=== PATIENT | male | born 1945 | race Caucasian/White ===

== ENCOUNTER 2023-08-06 17:49 | Emergency (ER) | payer MEDICARE, SELFPAY ==
[2023-08-06] VITALS (26 sets, daily range): BP systolic 106–144; BP diastolic 61–96; PULSE 68–86; RESP 13–29; TEMP 36.4; O2SAT 91–100
--- NOTE | ~2023-08-06 | XR_ITS ---
XR femur LT min 2V, XR pelvis 1-2V 08/06/2023 20:42 (accession [id number]), 08/06/2023 20:43 (accession [id number]) Indication: Left thigh pain Procedure: AP pelvis and 2 views left femur Comparison: No prior studies for comparison. Findings: Study limited by patient body habitus. There is lower lumbar spondylosis partially visualiz ed. Pelvic rings are intact. 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 Osteopenia. No acute fracture or traumatic malalignment. No focal soft tissue abnormality. No foreign bodies. Impression: 1: No acute fracture. Reviewed, dictated and finalized at location A. Impression: 1: No acute fracture. Impression: 1: No acute fracture.
--- NOTE | ~2023-08-06 | US_ITS ---
EXAMINATION:US venous doppler LE LT INDICATION:Left leg pain TECHNIQUE: Multiple grayscale, color flow and Doppler images of the left lower extremity deep venous systems were obtained and reviewed. COMPARISON:No prior studies for comparison. FINDINGS: The common femoral, superficial femoral and popliteal veins demonstrate normal respiratory variation, augmentation and compressibility. Color flow is also seen within the posterior tibial, pe roneal, greater saphenous and profunda veins. IMPRESSION: 1: No lower extremity deep venous thrombosis. Reviewed, dictated and finalized at location A.
--- NOTE | 2023-08-06 20:01 | ED.GENADULT ---
HPI - General Adult General Chief complaint: Extremity Injury, Lower Stated complaint: leg pain Time Seen by Provider: 08/06/23 19:04 History of Present Illness HPI narrative: This is a 78-year-old obese male with chronic pain presenting to ED with left thigh pain. Patient says that the pain started yesterday. He does not note any falls or anything. The pain is in the left side of his thigh and goes all the way down to his knee. He typically takes 10/325 hydrocodone for pain. He also has muscle relaxers at home. He denies fever chills chest pain difficulty breathing or abdominal pain. No difficulty urinating. He walks at home with a walker. The goal of today's visit is pain control. Related Data Allergies Allergy/AdvReac Type Severity Reaction Status Date / Time No Known Allergies Allergy Verified 08/06/23 20:45 Exam Narrative: APPEARANCE: No apparent distress. Head: atraumatic. EYES: EOMI, NOSE: Atraumatic NECK: Trachea midline RESPIRATORY: No increased rate of breathing CARDIOVASCULAR: RRR, no peripheral edema, lipodermatosclerosis of the lower extremities bilaterally. Feet are warm with palpable pulses. ABDOMINAL: Non-distended MUSCULOSKELETAl: Focal exam of the left thigh revealed tenderness to palpation without any obvious erythema swelling masses or areas of fluctuance. NEURO: Alert. Moving 4/4 extremities SKIN:: Warm, dry. Normal color PSYCHIATRIC: Normal affect Course Vital Signs Vital signs: Vital Signs Temperature 97.5 F L 08/06/23 17:51 Pulse Rate 80 08/06/23 17:51 Respiratory Rate 20 08/06/23 17:51 Blood Pressure 142/96 H 08/06/23 17:51 Pulse Oximetry 100 08/06/23 17:51 Oxygen Delivery Room Air 08/06/23 17:51 Temperature 97.5 F L 08/06/23 17:51 Pulse Rate 80 08/06/23 20:56 Respiratory Rate 25 H 08/06/23 20:56 Blood Pressure 133/88 08/06/23 20:49 Pulse Oximetry 98 08/06/23 20:56 Oxygen Delivery Room Air 08/06/23 17:51 Medical Decision Making MDM Narrative Medical decision making narrative: -Course: 78-year-old male presenting with atraumatic thigh pain. Physical exam is unremarkable and shows no evidence of trauma/infection. DVT US negative. Xrays negative. Neurovascularly intact. The patient's pain is not out of proportion but he is tender to palpation. patient and feel like this is similar to muscle spasms that he has had in the past. Patient will be treated with muscle relaxers and pain medication. Patient was then able to ambulate at his baseline. He will be discharged primary care follow-up -DDX includes but is not limited to: exacerbation of chronic pain, muscle spasm, muscle strain, infection, vascular injury -Co-morbidities complicating care: obesity, chronic pain, muscle spasms, anticoagulation -Social determinants of health: lives at home with his , retired, uses a walker to ambulate -Independent interpretation of studies: DVT study negative. X-rays unremarkable. -Interventions: 10 mg Valium, 1000 mg Tylenol, 0.5 mg Dilaudid -Shared decision making / Disposition: discharged -RX Robaxin, Tylenol Vital Signs Vital Signs: Vital Signs Temperature 97.5 F L 08/06/23 17:51 Pulse Rate 80 08/06/23 17:51 Respiratory Rate 20 08/06/23 17:51 Blood Pressure 142/96 H 08/06/23 17:51 Pulse Oximetry 100 08/06/23 17:51 Oxygen Delivery Room Air 08/06/23 17:51 Temperature 97.5 F L 08/06/23 17:51 Pulse Rate 80 08/06/23 20:56 Respiratory Rate 25 H 08/06/23 20:56 Blood Pressure 133/88 08/06/23 20:49 Pulse Oximetry 98 08/06/23 20:56 Oxygen Delivery Room Air 08/06/23 17:51 Discharge Plan Discharge Clinical Impression: Left thigh pain Patient Disposition: Home, Self-Care Condition: Stable Instructions: Antibiotic Form, Muscle Spasm (ED) Additional Instructions: Please continue to take your home pain medication. You can add Tylenol to your [place] as long as you stay
[2023-08-06] MEDS: ACETAMINOPHEN 500 MG TABLET 1000 MG PO (20:45)
[2023-08-06] MEDS: HYDROmorphone HCL INJ (*CRX) 1 MG/ML SYR 0.5 MG IV PUSH (20:46)
[2023-08-06] MEDS: diazePAM INJ (*CRX) 10 MG/2 ML SYRINGE IV PUSH (20:46)
== END 2023-08-06 22:15 | disposition home or self-care (01) ==
PROVIDERS: Emergency Provider Emergency Medicine; PCP Internal Medicine
DX: M79.652 Pain in left thigh (principal)
CPT/HCPCS: 72170; 73552; 93971; 96374; 96375; 99284; A9270; J1170; J3360

== ENCOUNTER 2023-09-09 09:35 | Emergency (ER) | payer MEDICARE, SELFPAY ==
--- NOTE | ~2023-09-09 | CT_ITS ---
EXAMINATION: CTA abdomen pelvis DATE: 09/09/2023 14:34 WEB APPLICATIONS DEVELOPER INDICATION: Melanoma. Abdomen pain. Patient on Coumadin. TECHNIQUE: Computed tomographic angiography (CTA) of the abdomen and pelvis was performed with 100 mL Omnipaque-350 intravenous contrast. The dose-length product was 1706.16 mGy-cm. Maximum intensity pr ojection 3D-reconstructions of the aorta and other arteries were constructed by the technologist on a separate workstation. Automated exposure control and iterative reconstruction technique were maxine fu. COMPARISON: None. FINDINGS: There is an IVC filter present. Lung bases are unremarkable. Heart size normal. No signific ant pleural or pericardial effusion. The liver, pancreas, adrenal glands are unremarkable. There are calcified granulomas of the spleen. There is renal cortical thinning. There is focal scarring of the left kidney laterally containing a coarse calcification, possibly a calyceal stone. No hydronephrosis . There is mild atherosclerosis. The celiac axis, SMA, FACUNDO and renal arteries are patent. No signific ant stenosis. No evidence for aneurysm or dissection. No lymphadenopathy. No abnormal pelvic masses o r fluid collections. There is severe lumbar spondylosis. There is partial ankylosis of the sacroiliac joints. Moderate osteoarthritis of the hips. No focal bowel abnormalities. No evidence for diverticu litis. Nonobstructive bowel pattern. IMPRESSION: 1. No acute abdominal abnormality. No significant vascular abnormality Reviewed, dictated and finalized at location B. APPLICATIONS DEVELOPER
--- NOTE | ~2023-09-09 | XR_ITS ---
EXAMINATION: XR chest 1V 09/09/2023 14:31 INDICATION: Shortness of breath PROCEDURE: 2 view chest COMPARISON: No prior studies for comparison. FINDINGS: The lungs are clear. Pacemaker leads are in expected position. The cardiomediastinal silhou ette is within normal limits. There are no pleural effusions. There is no pneumothorax suspected. IMPRESSION: 1: NO ACUTE CARDIOPULMONARY DISEASE. Reviewed, dictated and finalized at location B. DUMPER
[2023-09-09 09:54] VITALS: BP 140/87; PULSE 82; RESP 18; TEMP 37.1; O2SAT 99
--- NOTE | 2023-09-09 13:15 | ECG_ITS ---
Measurements Intervals [place] Rate: 80 P: 233 KS: 266 QRS: 2 QRSD: 108 T: -87 QT: 384 QTc: 443 Interpretive Statements ELECTRONIC ATRIAL PACEMAKER ELECTRONIC VENTRICULAR PACEMAKER WITH APPROPRIATE SENSING AND CAPTURE ST DEVIATION AND MODERATE T-WAVE ABNORMALITY, CONSIDER ANTEROLATERAL ISCHEMIA [-0.1+ mV T WAVE IN V3-V6] ST DEVIATION AND MODERATE T-WAVE ABNORMALITY, CONSIDER INFERIOR ISCHEMIA [-0.1+ mV T WAVE IN II/aVF] ABNORMAL ECG NO PREVIOUS ECG AVAILABLE FOR COMPARISON Electronically Signed On 09-09-2023 15:28:51 CLIENT ADMINISTRATOR by Ben Joaquin M.D.
--- NOTE | 2023-09-09 13:17 | ED.NAVMDI ---
HPI - Nausea/Vomiting/Diarrhea General Chief complaint: Nausea/Vomiting/Diarrhea <Capri Shaver PA-C - Last Filed: 09/09/23 13:20> Stated complaint: diarrhea <Capri Shaver PA-C - Last Filed: 09/09/23 13:20> Time Seen by Provider: 09/09/23 13:40 <Capri Shaver PA-C - Last Filed: 09/09/23 13:20> Source: patient <Sandra Rizvi MD - Last Filed: 09/12/23 12:13> History of Present Illness HPI Narrative: 78-year-old male who is currently anticoagulated for Coumadin for prior PEs reports for evaluation of sore generalized abdominal pain and black diarrhea for the past 6 days. Patient reports associated nausea, no emesis. He does endorse shortness of breath but denies chest pain. Denies known fever, urinary complaints. No prior abdominal surgeries reported. Denies aggravating or relieving factors for abdominal pain. <Capri Shaver PA-C - Last Filed: 09/09/23 13:20> 78-year-old male who is currently anticoagulated on Coumadin for prior Afib/DVT/PE reports for evaluation of sore abdominal pain in RLQ and LLQ and black diarrhea since 2am Saturday, occuring approximately every 30 minutes. He does endorse shortness of breath but denies chest pain. Denies known fever, urinary complaints. No prior abdominal surgeries reported. Denies aggravating or relieving factors for abdominal pain. Reports no nausea or vomiting. He states this has never happened before, does not follow with gi. No prior diagnosis of anemia, has never required a blood transfusion. His last colonoscopy was reportedly 5 years ago and normal. He gets his INR checked every month, last occurred a few weeks ago and was normal. He is having generalized weakness. No chest pain but some shortness of breath. No dizziness/lightheadned. <Sandra Rizvi MD - Last Filed: 09/12/23 12:13> Related Data Allergies/Adverse reactions: Allergies Allergy/AdvReac Type Severity Reaction Status Date / Time No Known Allergies Allergy Verified 09/09/23 13:14 <Capri Shaver PA-C - Last Filed: 09/09/23 13:20> Review of Systems Review of Systems: CONSTITUTIONAL: Denies fever, chills, or sweats. EYES: Denies visual changes, redness, or discharge. ENT: Denies rhinorrhea, congestion, sore throat, or otalgia. CARDIOVASCULAR: Denies chest pain, palpitations, or edema. RESPIRATORY: See HPI GASTROINTESTINAL: See HPI GENITOURINARY: Denies dysuria or hematuria. SKIN: Denies rash or itching. MUSCULOSKELETAL: Denies back pain, joint pain, or myalgia. NEUROLOGIC: Denies headache, numbness, or weakness. PSYCHIATRIC: Denies anxiety or depression. <Capri Shaver PA-C - Last Filed: 09/09/23 13:20> PMFSH Past Medical History Medical History: Medical History (Updated 09/12/23 @ 12:01 by Sandra Rizvi MD) Atrial fibrillation DVT (deep venous thrombosis) Pulmonary embolism <ISAC Deluna Last Filed: 09/09/23 13:20> Surgical History Surgical History: Surgical History (Updated 09/12/23 @ 12:01 by Sandra Rzivi MD) History of colonoscopy approx 2018 <ISAC Deluna Last Filed: 09/09/23 13:20> Exam Narrative: GENERAL: Well-appearing, well-nourished, and in no acute distress. HEAD: Normocephalic, atraumatic. NECK: Supple. CHEST: Clear to auscultation. No respiratory distress. HEART: Regular rate and rhythm. No murmur heard. Normal peripheral pulses. ABDOMEN: Normoactive bowel sounds. Abdomen soft with mild generalized tenderness. No guarding, rebound or rigidity. EXTREMITIES: Normal range of motion. No edema. SKIN: Warm, dry, no rash. NEURO: No focal deficits. Alert and oriented x3 <Capri Shaver PA-C - Last Filed: 09/09/23 13:20> GENERAL: Well-appearing, well-nourished, and in no acute distress. HEAD: Normocephalic, atraumatic. Eyes: No conjunctival pallor, no scleral injection or icterus ENT: Moist mucous membranes. No epistaxis. NECK: Supple. CHEST
[2023-09-09 13:28] LABS: Basophils Percent Auto 0.3 % (0.2-1.2); Eosinophils Absolute Auto 0.1 K/mm3 (0-0.3); Eosinophils Percent Auto 0.6 % (0-4.4); Hematocrit 45.2 % (42.0-52.0); Hemoglobin 14.4 g/dL (14.0-18.0); Immature Granulocyte Absolute 0.05 K/mm3 (0.00-0.031); Immature Granulocyte Percent A 0.6 % (0-0.5); Lymphocytes Absolute Auto 1.09 K/mm3 (0.9-3.2); Lymphocytes Percent Auto 12.6 % (18.3-44.2); Mean Corpuscular HGB Conc 31.9 g/dl (32-36); Mean Corpuscular Hemoglobin 30.6 pg (26-34); Mean Corpuscular Volume 96.2 fl (80-100); Mean Platelet Volume 9.9 fl (7.4-10.4); Monocytes Absolute Auto 1.3 K/mm3 (0.1-0.6); Monocytes Percent Auto 14.7 % (2.6-8.5); Neutrophils Absolute Auto 6.2 K/mm3 (1.3-6.7); Neutrophils Percent Auto 71.2 % (45.5-73.1); Platelet Count Result 235 k/mm3 (150-375); Red Cell Distribution Width 13.2 % (11.5-14.5); White Blood Count 8.7 K/mm3 (4.5-10.0)
[2023-09-09] MEDS: ONDANSETRON INJ 4 MG/2 ML VIAL IV PUSH (13:29)
[2023-09-09] MEDS: PANTOPRAZOLE SODIUM IV 40 MG VIAL 80 MG IV PUSH (13:29)
[2023-09-09 13:40] VITALS: BP 155/81; PULSE 85; O2SAT 100
[2023-09-09 13:41] LABS: INR 1.6; Prothrombin Time 19.8 Seconds (11.1-14.7)
--- NOTE | 2023-09-09 13:41 | ED.NAVMDI ---
HPI - Nausea/Vomiting/Diarrhea General Chief complaint: Nausea/Vomiting/Diarrhea Stated complaint: diarrhea Time Seen by Provider: 09/09/23 13:40 Related Data Allergies Allergy/AdvReac Type Severity Reaction Status Date / Time No Known Allergies Allergy Verified 09/09/23 13:14 [facility] Past Medical History Medical History (Updated 09/12/23 @ 12:01 by Sandra Rizvi MD) Atrial fibrillation DVT (deep venous thrombosis) Pulmonary embolism Surgical History Surgical History (Updated 09/12/23 @ 12:01 by Sandra Rizvi MD) History of colonoscopy approx 2018 Exam Narrative: GENERAL: Well-appearing, well-nourished, and in no acute distress. HEAD: Normocephalic, atraumatic. EYES: PERRLA and EOMI. ENT: Nares clear, no rhinorrhea or epistaxis. Mucous membranes moist. NECK: Supple. CHEST: Clear to auscultation. No respiratory distress. HEART: Regular rate and rhythm. No murmur heard. Normal peripheral pulses. ABDOMEN: Soft, nontender, nondistended, normal active bowel sounds. EXTREMITIES: Normal range of motion. No edema. SKIN: Warm, dry, no rash. NEURO: No focal deficits. Alert and oriented x3. PSYCH: Normal mood and affect. Course Vital Signs Vital signs: Vital Signs Temperature 98.7 F 09/09/23 09:54 Pulse Rate 82 09/09/23 09:54 Respiratory Rate 18 09/09/23 09:54 Blood Pressure 140/87 09/09/23 09:54 Pulse Oximetry 99 09/09/23 09:54 Oxygen Delivery Room Air 09/09/23 09:54 Temperature 98.7 F 09/09/23 09:54 Pulse Rate 80 09/09/23 16:41 Respiratory Rate 16 09/09/23 16:41 Blood Pressure 154/95 H 09/09/23 16:41 Pulse Oximetry 100 09/09/23 16:41 Oxygen Delivery Room Air 09/09/23 09:54 MDM - Nausea/Vomiting/Diarrhea Lab Data 09/09/23 13:20 09/09/23 13:20 Labs: Lab Results 09/09/23 Range/Units 13:20 WBC 8.7 (4.5-10.0) K/mm3 RBC 4.70 (4.6-6.20) M/mm3 Hgb 14.4 (14.0-18.0) g/dL Hct 45.2 (42.0-52.0) % MCV 96.2 (80-100) fl MCH 30.6 (26-34) pg MCHC 31.9 L (32-36) g/dl RDW 13.2 (11.5-14.5) % Plt Count 235 (150-375) k/mm3 MPV 9.9 (7.4-10.4) fl Immature Gran % (Auto) 0.6 H (0-0.5) % Neut % (Auto) 71.2 (45.5-73.1) % Lymph % (Auto) 12.6 L (18.3-44.2) % [place] % (Auto) 14.7 H (2.6-8.5) % Eos % (Auto) 0.6 (0-4.4) % Baso % (Auto) 0.3 (0.2-1.2) % Lymph # (Auto) 1.09 (0.9-3.2) K/mm3 [place] # (Auto) 1.3 H (0.1-0.6) K/mm3 Eos # (Auto) 0.1 (0-0.3) K/mm3 Baso # (Auto) 0.0 (0.0-0.1) K/mm3 Abs Immat Gran (auto) 0.05 H (0.00-0.031) K/mm3 Absolute Neuts (auto) 6.2 (1.3-6.7) K/mm3 Absolute Nucleated RBC 0.0 (0.0-0.012) K/mm3 Nucleated RBC % 0.0 (0.0-0.2) % PT 19.8 H (11.1-14.7) Seconds INR 1.6 APTT 35.7 (22.3-36.8) SECONDS Sodium 138 (137-145) mmol/L Potassium 4.4 (3.4-5.0) mmol/L Chloride 108 H (98-107) mmol/L Carbon Dioxide 19 L (22-30) mmol/L Anion Gap 11 (8-16) mmol/L BUN 30 H (9-20) mg/dL Creatinine 0.90 (0.7-1.3) mg/dL Estim Creat Clear Calc 91 ml/min Estimated GFR > 60 (59 - ) Glucose 103 (65-110) mg/dL Lactic Acid 0.9 (0.7-2.0) mmol/L Calcium 9.6 (8.4-10.2) mg/dL Magnesium 2.3 (1.6-2.3) mg/dL Total Bilirubin 0.7 (0.2-1.3) mg/dL AST 48 (17-59) U/L ALT 49 (6-50) U/L Alkaline Phosphatase 87 (38-126) U/L Troponin I < 0.012 (0.000-0.034) ng/mL Total Protein 9.0 H (6.3-8.2) g/dL Albumin 4.6 (3.5-5.1) g/dL Lipase 27 (23-300) U/L Discharge Plan Discharge Clinical Impression: Acute diarrhea Patient Disposition: Home, Self-Care Condition: Stable Instructions: Antibiotic Form, Acute Diarrhea (ED), Viral Syndrome (ED), Abdominal Pain (ED) Additional Instructions: As we discussed, you do not have evidence of a GI bleed. Thus, your symptoms represent diarrhea. You do not currently appear dehydrated. Rest and maintain your hydration with gentle sips of water or diluted j
[2023-09-09 13:42] LABS: Lactic Acid Reflex 0.9 mmol/L (0.7-2.0)
[2023-09-09 13:43] LABS: Partial Thromboplastin Time 35.7 SECONDS (22.3-36.8)
[2023-09-09 13:48] LABS: Alanine Aminotransferase 49 U/L (6-50); Albumin Level 4.6 g/dL (3.5-5.1); Alkaline Phosphatase 87 U/L (38-126); Anion Gap 11 mmol/L (8-16); Aspartate Amino Transferase 48 U/L (17-59); Bilirubin,Total 0.7 mg/dL (0.2-1.3); Blood Urea Nitrogen 30 mg/dL (9-20); Calcium 9.6 mg/dL (8.4-10.2); Carbon Dioxide 19 mmol/L (22-30); Chloride 108 mmol/L (98-107); Estimated CRCL calculation 91 ml/min; Estimated Glomerular Filt Rate > 60; Glucose 103 mg/dL (65-110); Lipase 27 U/L (23-300); Potassium 4.4 mmol/L (3.4-5.0); Sodium 138 mmol/L (137-145)
[2023-09-09 13:54] LABS: Troponin I < 0.012 ng/mL (0.000-0.034)
[2023-09-09 13:56] LABS: Magnesium 2.3 mg/dL (1.6-2.3)
[2023-09-09 16:41] VITALS: BP 154/95; PULSE 80; RESP 16; O2SAT 100
== END 2023-09-09 16:54 | disposition home or self-care (01) ==
PROVIDERS: Physician Assistant; Emergency Provider Student in an Organized Health Care Education/Training Program; PCP Internal Medicine
DX: R19.7 Diarrhea, unspecified (principal); I48.91 Unspecified atrial fibrillation; Z86.718 Personal history of other venous thrombosis and embolism; Z86.711 Personal history of pulmonary embolism; Z79.01 Long term (current) use of anticoagulants; Z95.0 Presence of cardiac pacemaker; R94.31 Abnormal electrocardiogram [ECG] [EKG]
CPT/HCPCS: 36415; 71045; 74174; 80053; 83605; 83690; 83735; 84484; 85025; 85610; 85730; 93005; 96374; 96375; 99284; C9113; J2405; Q9967

== ENCOUNTER 2023-09-18 00:16 | Day surgery (SDC) | payer MEDICARE, SELFPAY ==
--- NOTE | 2023-09-13 15:16 | PC.NURSE ---
Report to the Outpatient Waiting Room, entrance under the green pavilion located off [facility], at time __0600 on date _09/18/23 . Planned Procedure Time: 0730 . Time changes happen often and if your time is changed the preop area will call you the afternoon before. - You and your visitor will be asked to self-screen and do not enter if you have any COVID symptoms. - A mask is optional within the hospital at this time. Patients may have clear liquids (water, carbonated beverages, clear teas, apple juice) until 3 hours prior to surgery( 4:30AM ) with a maximum of 20 ounces. - No food from midnight until time of surgery - Take the following medications with a SIP of water the morning of surgery: ___CARVEDILOL,DOFETILIDE,_HYDROCODONE IF NEEDED DO NOT STOP ANY OF YOUR OTHER PRESCRIPTION MEDICATIONS PRIOR TO SURGERY ?EXCEPT THE FOLLOWING Medications to discontinue per physician ___MAY CONT WARFARIN PER DR CORCORAN,DON'T TAKE MORNING OF SURGERY. HOLD ALL VITAMINS 3 DAYS PRE OP.LAST DOSE 09/14/23 Please no make-up, nail sinhala, hairspray, perfume, deodorant, or body powder the day of surgery. No jewelry (including any body piercings) or valuables the day of surgery, leave them at home. Please take a shower or bath the night before, or the morning of, surgery with an antibacterial soap. Wear comfortable, loose fitting clothing. Children are encouraged to wear pajamas. - Jewelry must be removed prior to entering the operating room. Rings and piercings that are not removed may be cut off. - The hospital will not accept responsibility for valuables. - Please leave all valuables, including medications, at home the day of surgery. If you are going home after surgery, a licensed mechanic driver must drive you home. - NO public transportation without another adult if you receive anesthesia. - We recommend that an adult stay with you for 24 hours following discharge. - We also recommend that you do not drive, make important decision, drink alcoholic beverages, or take any drugs that were not prescribed by your health care provider for at least 24 hours after your discharge time. For Pediatric surgeries, we recommend two adults accompany the child home. Follow any additional instructions given to you from your surgeon. If you or anyone in your household have experienced Covid symptoms in the past week, please notify your surgeon or the nurse liaison at the phone number below for possible testing. Telephone instructions given to ___PATIENT and asked if any additional questions and then verbalized understanding. Patient advised to call surgeon office or pre surgery nurse liaison [phone] if any additional questions.
[2023-09-13 15:23] VITALS: BMI 44.1
[2023-09-18] VITALS (8 sets, daily range): BP systolic 125–151; BP diastolic 70–100; PULSE 80–95; RESP 12–20; TEMP 36.7–37.1; O2SAT 93–100
--- NOTE | 2023-09-18 07:15 | SUR.PREOP ---
pt came in today with his home compression socks with with wounds on under. matt and patrizia aware.
--- NOTE | 2023-09-18 07:15 | WPDHPUPDATE1 ---
History and Physical Update Update Date/Time: 09/18/23 07:15 History and Physical has been reviewed, including an updated exam of the patient. There are NO changes in the patient's condition. Risks, benefits, and alternatives have been discussed and questions answered. Patient agrees to proceed with procedure.
--- NOTE | 2023-09-18 07:15 | WPDANESEPPF ---
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 Patient Data Age: 78 Gender: M Height: 1.83 m Weight: 148.1 kg Last Vital Signs Temp 36.7 C 09/18/23 06:41 Pulse 81 09/18/23 06:41 Resp 14 09/18/23 06:41 BP 147/78 H 09/18/23 06:41 Pulse Ox 98 09/18/23 06:41 O2 Del Method Room Air 09/18/23 06:41 Allergies Allergy/AdvReac Type Severity Reaction Status Date / Time No Known Allergies Allergy Verified 09/18/23 06:47 Home Medications Medication Instructions Recorded Confirmed Type carvedilol 6.25 mg tablet 25 mg PO BID 09/13/23 09/18/23 History dofetilide 500 mcg capsule 500 mcg PO BID 09/13/23 09/18/23 History hydrocodone 10 mg-acetaminophen 1 tablet PO Q4-5H PRN Pain 09/13/23 09/18/23 History 325 mg tablet magnesium oxide 400 mg (241.3 mg 400 mg PO BID 09/13/23 09/13/23 History magnesium) tablet mirabegron 25 mg tablet,extended 25 mg PO DAILY 09/13/23 09/13/23 History release 24 hr (Myrbetriq) multivitamin 1 tablet PO DAILY 09/13/23 09/13/23 History sacubitril 24 mg-valsartan 26 mg 1 tablet PO BID 09/13/23 09/13/23 History tablet (Entresto) vitamin A-vitamin C-vit E-min 1 tablet PO DAILY 09/13/23 09/13/23 History tablet warfarin 5 mg tablet 5 mg PO EVERY OTHER DAY 09/13/23 09/18/23 History warfarin 7.5 mg tablet 7.5 mg PO EVERY OTHER DAY 09/13/23 09/13/23 History Patient hx anesthesia problems: none Family hx anesthesia problems: none Results Review: All pre-operative results and documents have been reviewed as part of the pre-operative evaluation. [facility] Past Medical History Medical History Atrial fibrillation DVT (deep venous thrombosis) Pulmonary embolism Surgical History Surgical History History of colonoscopy 2017 Social History Social History Smoking status: Never smoker Living arrangements: with family Spiritual care concerns: No Anes - Eval Final PreProcedure Day of Procedure 09/18/23 07:15 Patient weight: morbidly obese Heart: regular rate and rhythm Lungs: decreased breath sounds Airway: Mallampati scale class II Neurological: alert and oriented Last oral intake: >/= 8 hours ASA classification: IV Emergent: no Anesthetic plan: proceed Anesthesia type and monitoring: general LMA and standard monitoring Results Review: All pre-operative results and documents have been reviewed as part of the pre-operative evaluation. Informed Consent: The patient's anesthetic plan and its attendant risks and benefits were discussed with the patient/family/POA. Questions were solicited and answers provided to the satisfaction of the patient/family/POA.
[2023-09-18] MEDS: ceFAZolin 3 GM/D5W 100 ML 100 ML IVPB (09:17)
[2023-09-18] MEDS: LIDO 1%/EPINEPHRINE 1:100,000 20 ML VIAL 10 ML INFILTRATE (09:57)
[2023-09-18] MEDS: BACITRACIN OINTMENT 15 GM TUBE 1 APPLIC TOPICAL (10:37)
[2023-09-18] MEDS: LACTATED RINGERS 1,000 ML 30 ML IV CONT (10:44)
[2023-09-18] MEDS: fentaNYL CITRATE INJ (*CRX) 100 MCG/2 ML VIAL 25 MCG IV PUSH ×5 (10:46→11:20)
--- NOTE | 2023-09-18 10:59 | W.PM.PROC2 ---
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 He was taken to the operating room where he was placed supine on the operating table. A new IV had to be started in holding.. He was given IV sedation with an LMA. The entire face and neck upper chest were prepped and draped in usual fashion. A time-out was held and confirmed. The site on the nose was examined under loupe magnification and marked for incision. This area was widely infiltrated with 1% lidocaine with epinephrine. The incision was made and the mass taken off in the subcutaneous tissue. Specimen was marked at the superior aspect for 12:00 o'clock and sent to pathology. The pathologist revealed basal cell carcinoma and all margins free. The bipolar cautery was used throughout this procedure. The patient had been given 3 g of Ancef preop. We elected to harvest a full-thickness skin cartilage graft from the right patricio bowl from the posterior aspect. This was measured and locally infiltrated with 1% lidocaine with epinephrine. The incision was made through the posterior skin and involves the skin and cartilage. The cartilage was taken off from the deep side of the anterior skin lamella. The graft was tailored to fit. The cartilage was fitted beneath the skin at the tip and also at the lateral ala. it was inset with a single mattress suture at the lobule to stabilize that end of the cartilage. Additional sutures were through skin with 5 0 nylon. The donor site was closed for anterior lacerations with running chromic. The posterior donor site was closed with a running 4-0 nylon after undermining skin margins. This wound dressings included bacitracin ointment and a Lencho ear cup. The patient has hydrocodone 10/325 at his home in sufficient quantities for pain relief. He will be prescribed also cephalexin for 5 days 500 mg t.i.d. Estimated Blood Loss 15 Drains No Packing No Pathology Yes Complications No immediate complications Condition Stable Disposition PACU
[2023-09-18] MEDS: oxyCODONE HCL (*CRX) 5 MG TAB IR PO (11:45)
== END 2023-09-18 12:30 | disposition home or self-care (01) ==
PROVIDERS: PCP Internal Medicine; Visit Provider Plastic Surgery
PROC: (CPT 11642; principal; 2023-09-18 07:30)
DX: C44.311 Basal cell carcinoma of skin of nose (principal); I48.91 Unspecified atrial fibrillation; Z86.718 Personal history of other venous thrombosis and embolism; Z86.711 Personal history of pulmonary embolism; Z79.01 Long term (current) use of anticoagulants; E66.01 Morbid (severe) obesity due to excess calories; Z68.41 Body mass index [BMI] 40.0-44.9, adult
CPT/HCPCS: 11642; 15760; 88305; 88331; A9270; J0690; J2405; J3010; J7120